=== PATIENT | female | born 1970 | race American Indian/Alaskan Native ===

== ENCOUNTER 2020-04-20 05:56 | Day surgery (SDC) | payer BC ==
[2020-04-15 09:48] LABS: Hematocrit 39.6 % (30.3-42.9); Hemoglobin 13.5 gm/dl (10.1-14.3); Mean Corpuscular HGB Conc 34 % (30-34); Mean Corpuscular Volume 86 fl (79-97); Platelet Count 216 K/mm3 (140-440); Red Blood Count 4.64 M/mm3 (3.65-5.03); Red Cell Distribution Width 13.7 % (13.2-15.2)
--- NOTE | 2020-04-15 17:00 | History and Physical Report ---
History of Present Illness Date of examination: 04/13/20 Date of admission: 04/20/2020 Chief complaint: post menopausal bleeding History of present illness: Visit Type: Pre-Op CC: no complaints. History of Present Illness: pt. presents for Pre-Op visit; no c/o. Mask, Patient denies fever, cough, shortness of breath and exposure to COVID-19. ................... ..................................................Shaquillefaviannathanael Robby April 13, 2020 10:05 AM Pt presents with pre op for hysteroscopy with D&C for post menopausal bleeding . Pt has not had menses in several years (since 2012) and in September 2019 started to have regular menes at least once per month or weekly with either bright red blood or darker older appering blood. Pt did have and embx that showed : NO DIAGNOSTIC FEATURES OF HYPERPLASIA. NO CARCINOMA SEEN. COMMENT: THE BIOPSIED NON-POLYPOID PROLIFERATIVE ENDOMETRIAL TISSUE IS WITH GLANDULAR AND STROMA BREAKDOWN AND IS LIMITED IN AMOUNT. A DIAGNOSIS OF DISORDERED PROLIFERATIVE ENDOMETRIUM CAN NOT BE EXCLUDED. I d/w pt previously that given she does have the paragard in place and she does not want it removed, this could be the cause of her b leeding but also that it being in place may complicat the procedure or limit what provider is able to do without it being dislodged. Pt previously expressed understanding and desired it to remain in place. Pt has had medical clearance for this procedure. All risk/benefits/alternatives were d/w pt and questions were addressed and answered. Including but not limited to bleeding, infection, uterine perforation, hysterectomy as a life saving measure. Pt expressed understanding. Consents were signed and placed on the chart. 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 Surgery (not C/S): negative Operations: positive: colon polypectomy (2006) Tonsillectomy Hospitalizations: negative Anesthesia Complications: negative Abnormal PAP: negative Uterine Anomaly: negative TASHIA Exposure: negative Infertility: negative Infection History HIV Risk Eval: no Hx of STD: None Active Medications (reviewed today): METFORMIN () MULTIVITAMIN () LOSARTAN-HCTZ () PARAGARD INTRAUTERINE COPPER INTRAUTERINE INTRAUTERINE DEVICE (IUD'S) Current Allergies (reviewed today): No known allergies Past Medical History: Reviewed history from 10/27/2016 and no changes required: colon polyps (2006) Hypertension-on lisinopril/HCTZ allergies Prediabetes diet controlled Hyperlipidemia diet controlled Past Surgical History: positive: colon polypectomy (2006) Tonsillectomy Family History Summary: Reviewed history Last on 10/21/2019 and no changes required:04/15/2020 Other Family Member - Has No Family History of Uterine Cancer - Entered On: 02/01/2018 Other Family Member - Has No Family History of Small Bowel Cancer - Entered On: 02/01/2018 Other Family Member - Has No Family History of Stomach Cancer - Entered On: 02/01/2018 Other Family Member - Has No Family History of Pancreatic Cancer - Entered On: 02/01/2018 Other Family Member - Has No Family History of Ovarvian Cancer - Entered On: 02/01/2018 Other Family Member - Has No Family History of Kidney/Urinary Tract Cancer - Entered On: 02/01/2018 Other Family Member - Has No Family History of Spontaneous DVT-PE - Entered On: 02/01/2018 Other Family Member - Has No Family History of Colon Cancer - Entered On: 02/01/2018 Other Family Member - Has No Family History of Brain Cancer - Entered On: 02/01/2018 Other Family Member - Has No Family History of Breast Cancer - Entered On: 02/01/2018 Other Family Member - Has No Family History of Biliary Tract Cancer - Entered On: 02/01/2018 General Comments - FH: No Family History of Breast Cancer No Family History of Colon Cancer No Family History of Ovarian Cancer Social History: Reviewed history from 10/27/2016 and no changes required: Patient is Smoking History: Patient has never smoked. Risk Factors: Smoked Tobacco Use: Never smoker Smokeless Tobacco Use: Never Passive smoke exposure: no Drug use: no HIV high-risk behavior: no Alcohol use: no Exercise: yes Times per week: 2 Type of Exercise: walking Review of Systems General Denies fever, chills, sweats, anorexia, fatigue, weakness, malaise, weight loss and sleep disorder. Denies nausea, vomiting, headache, swelling of legs, abdominal pain, vaginal discharge, vaginal bleeding and contractions. Complains of abnormal vaginal bleeding and pelvic pain. Denies vaginal discharge, incontinence, dysuria, hematuria, urinary frequency, amenorrhea, menorrhagia, genital sores, decreased libido, painful periods, painful sex, urinary urgency, hot flashes, vaginal dryness, vaginal itching and vaginal odor. CV Denies chest pains, palpitations, syncope, dyspnea on exertion, orthopnea, PND and peripheral edema. Resp Denies cough, dyspnea at rest, excessive sputum, hemoptysis, wheezing and pleurisy. GI Denies nausea, vomiting, diarrhea, constipation, change in bowel habits, abdominal pain, melena, hematochezia, jaundice, gas/bloating, indigestion/heartburn, dysphagia and odynophagia. Endo Denies cold intolerance, heat intolerance, polydipsia, polyphagia, polyuria and unusual weight change. Breast Denies left breast lump, right breast lump, nipple discharge, bloody discharge from nipple, breast pain, abnormal mammogram and breast enlargement. MS Denies back pain, joint pain, joint swelling, muscle cramps, muscle weakness, stiffness, arthritis, sciatica, restless legs, leg pain at night and leg pain with exertion. Derm Denies rash, itching, dryness and suspicious lesions. Neuro Denies paralysis, paresthesias, headache, seizures, tremors, vertigo, transient blindness, frequent falls, frequent headaches and difficulty walking. Psych Denies depression, anxiety, irritability and mood swings. Eyes Denies blurring, diplopia, irritation, discharge, vision loss, eye pain and photophobia. ENT Denies earache, ear discharge, tinnitus, decreased hearing, nasal congestion, nosebleeds, sore throat and hoarseness. Allergy Denies urticaria, allergic rash, hay fever and recurrent infections. Heme Denies abnormal bruising, bleeding and enlarged lymph nodes. [Labs In-House] Physical Exam Appearance: well developed, well nourished, no acute distress Other Exams Lungs: no rales, rhonchi, or wheezes Heart: S1, S2, no murmur, rub, or gallop Abdomen: soft, non-tender, no masses, bowel sounds normal Extremities: normal alignment, no joint enlargement, crepitus, masses or tenderness; normal tone and strength Genitourinary Exam Comments: deferred until EUA ] Past History Past Medical History: other (see hpi) Past Surgical History: other (see hpi) ELECTRICAL TECH/PROJECT MANAGER History: other (see hpi) Family/Genetic History: other (see hpi) Social history: other (see hpi) Medications and Allergies Allergies Allergy/AdvReac Type Severity Reaction Status Date / Time No Known Allergies Allergy Unverified 04/14/20 19:00 Review of Systems All systems: negative - Vital Signs Vital signs: Vital Signs Temp Pulse Resp BP Pulse Ox 98.2 F 76 20 162/93 97 04/15/20 09:30 04/15/20 09:30 04/15/20 09:30 04/15/20 09:30 04/15/20 09:30 Temp Pulse Resp BP Pulse Ox 98.2 F 76 20 162/93 97 04/15/20 09:30 04/15/20 09:30 04/15/20 09:30 04/15/20 09:30 04/15/20 09:30 - Physical Exam Breasts: Positive: deferred Cardiovascular: Normal S1, Normal S2 Lungs: Positive: Clear to auscultation, Normal air movement Abdomen: Positive: normal appearance, soft. Negative: distention, tenderness, guarding Genitourinary (Female): Positive: other (deferred until EUA) Deep Tendon Reflex Grade: Normal +2 Results Result Diagrams: 04/15/20 09:45 Abnormal lab results 04/15/20 Range/Units 09:45 WBC 4.3 L (4.5-11.0) K/mm3 All other labs normal. Assessment and Plan - Patient Problems (1) Postmenopausal bleeding Status: Acute Plan to address problem: -admit and prepare for hysterocopy with D&C and any other indicated procedures -consents signed and to be placed on the chart -all questions addressed and answered. (2) Cervical polyp Status: Acute
[2020-04-20] MEDS ORDERED: MIDAZOLAM 2 MG/2 ML INJ IV NR (06:00)
[2020-04-20] MEDS ORDERED: LACTATED RINGERS 1,000 ML IV SCH (06:00)
--- NOTE | 2020-04-20 06:44 | Anesthesia Consultation ---
Anesthesia Consult and Med Hx Date of service: 04/20/20 - Airway Anesthetic Teeth Evaluation: Good ROM Head & Neck: Adequate Mental/Hyoid Distance: Adequate Mallampati Class: Class II Intubation Access Assessment: Probably Good - Pulmonary Exam CTA: Yes - Cardiac Exam Cardiac Exam: RRR - Pre-Operative Health Status ASA Pre-Surgery Classification: ASA3 Proposed Anesthetic Plan: General - Pulmonary Hx Sleep Apnea: Yes (No CPAP) - Cardiovascular System Hx Hypertension: Yes - Central Nervous System Hx Psychiatric Problems: No - Hematic Hx Anemia: Yes (As a child) - Other Systems Hx Cancer: No Hx Obesity: Yes
--- NOTE | 2020-04-20 06:45 | Anesthesia Day of Surgery ---
Anesthesia Day of Surgery - Day of Surgery Patient Examined: Yes Patient H&P Reviewed: Yes Patient is NPO: Yes
[2020-04-20] MEDS ORDERED: ONDANSETRON 4 MG/2 ML INJ ONE (07:27)
[2020-04-20] MEDS ORDERED: propofoL 200 MG/20 ML VIAL IV ONE (07:27)
[2020-04-20] MEDS ORDERED: ROCURONIUM 50 MG/5 ML INJ IV ONE (07:27)
[2020-04-20] MEDS ORDERED: fentaNYL 100 MCG/2 ML INJ ONE (07:27)
[2020-04-20] MEDS ORDERED: SUCCINYLCHOLINE CHLORIDE 200 MG/10 ML INJ MDV ONE (07:27)
[2020-04-20] MEDS ORDERED: LIDOCAINE MPF (2%) 20 MG/1 ML VIAL 5 ML ONE (07:27)
[2020-04-20] MEDS ORDERED: SILVER NITRATE APPLICATOR 1 EA TP ONE ×2 (08:28→08:31)
[2020-04-20] MEDS ORDERED: KETOROLAC 30 MG/1 ML INJ ONE (08:37)
--- NOTE | 2020-04-20 08:47 | Short Stay Summary ---
Short Stay Documentation Date of service: 04/20/20 - History H&P: dictated Social history: other (see hpi) - Allergies and Medications Current Medications: Allergies No Known Allergies Allergy (Unverified 04/14/20 19:00) Active Medications Lactated Ringer's (Lactated Ringers) 1,000 mls @ 100 mls/hr IV DIRECT HAILEE Stop: 04/20/20 23:59 Midazolam HCl (Midazolam 2 Mg/2 Ml Inj) 2 mg IV PREOP NR Stop: 04/20/20 23:59 - Physical exam Breasts: deferred - Brief post op/procedure progress note Date of procedure: 04/20/20 Pre-op diagnosis: Postmenopausal bleeding; endometrial mass; cervical mass Post-op diagnosis: same Procedure: Removal of cervical polyp Diagnostic hysteroscopy Hysteroscopic polypectomy Dilatation and curettage Anesthesia: GETA Findings: See operative report Surgeon: JUDY ROSSI Estimated blood loss: minimal Pathology: list (Cervical mass, Endometrial mass, curettage specimen) Specimen disposition: to lab Condition: stable - Hospital course Hospital course: Patient was admitted for above-stated procedure. Patient underwent above-stated procedure that was not complicated. Patient will be discharged once discharge criteria has been met in the PACU. - Disposition Condition at discharge: Good Disposition: DC-01 TO HOME OR SELFCARE - Discharge Diagnoses (1) Postmenopausal bleeding Status: Acute (2) Cervical polyp Status: Acute Short Stay Discharge Plan Activity: no restrictions Diet: low salt Follow up with: UNRULY LANGFORD MD [Primary Care Provider] - 7 Days Prescriptions: Ibuprofen [Motrin 800 MG tab] 800 mg PO Q8HR PRN #30 tablet PRN Reason: Pain, Moderate (4-6)
--- NOTE | 2020-04-20 08:47 | Operative Report ---
Operative Report Operative Report: Date of procedure: 04/20/2020 Pre-operative diagnosis: Postmenopausal bleeding Morbid obesity BMI 52 Hypertension Endometrial mass Post-operative diagnosis: Same Procedure name(s): Exam and anesthesia Dilatation and curettage Hysteroscopic polypectomy Surgeon: Dr. Narayan Video And Sound Recorder: Certified surgical scrub teacher's assistant Anesthesia: Gen. endotracheal anesthesia EBL: Minimal Urine output: 250 mL out at the beginning of the procedure via straight catheterization Fluids: 250 mL/fluid deficit was 300 mL Findings: Mass noted at the cervical os appeared to be external polyp 2 endometrial masses noted on hysteroscopy appears to be polypoid in nature Copper IUD noted to be at uterine fundus both prior to the procedure and at the end of the procedure. There was no evidence of fundal perforation at the end of the procedure Indications: Patient presented with postmenopausal bleeding. Patient was noted to have endometrial mass as well as cervical polyp on exam prior to procedure. Patient did undergo endometrial biopsy in office that was normal. Patient continued to have bleeding. Patient was brought to the operating room for above-stated procedures. Procedure: Patient was taken to the operating room where she was placed under general anesthesia. She was placed in dorsal lithotomy position with legs in Agustin stirrups. She was then prepped and draped in sterile fashion. Straight catheterization was done at this time. The anterior lip of the cervix was grasped with a tenaculum and the uterus was sounded to approximately 8 cm. As at this point that the cervix was dilated to allow the passage of a hysteroscope. Patient was noted to have the above-stated findings. Under direct visualization the polyp resected was placed through the hysteroscope and endometrial masses were removed at this time x2. It was at this time that hysteroscope was removed and patient underwent curettage after dilatation. With minimal tissue removed at this time. Care was taken to not dislodge copper IUD that was in place. Patient was noted to have a small cervical puncture from the tenaculum that was used on the anterior lip of the cervix. Silver nitrate was applied to this area. Hemostasis was noted to be excellent. Patient was taken to the recovery room awake and in stable condition. All laps and needle counts were correct. Patient tolerated the procedure well. Surgeon: Dr. Narayan Video And Sound Recorder: Certified surgical scrub teacher's assistant Anesthesia: [] EBL: [] Urine output: [] Fluids: [] Findings: [] Indications: [] Procedure: Patient was taken to the operating room where she was placed under [mask anesthesia]. She was then prepped and draped in sterile fashion. She was placed in dorsal lithotomy position with legs in Agustin stirrups. Urine output was obtained via straight catheterization. The anterior lip of the cervix was grasped with a tenaculum and the uterus was sounded to approximately [10 ]cm. As at this point that the cervix was dilated to allow the passage of a [9 ]mm suction curette. Suction dilatation and curettage occurred until a gritty texture was obtained on all surfaces of the uterus. Products of conception were removed from the uterus. Patient was given [Pitocin] at the end of the procedure. Hemostasis was noted to be excellent. Patient was taken to the recovery room awake and in stable condition. Patient was given Ancef prior to the onset of the procedure. All laps and needle counts were correct. Patient tolerated the procedure well.
[2020-04-20] MEDS ORDERED: HYDROcodone/ACETAMINOPHEN 5-325 MG TAB PO PRN (09:30)
[2020-04-20] MEDS ORDERED: fentaNYL 100 MCG/2 ML INJ IV PRN (09:30)
[2020-04-20 09:54] VITALS: BP 110/66
--- NOTE | 2020-04-20 11:06 | Post Anesthesia Evaluation ---
- Post Anesthesia Evaluation Patient Participated: Yes Airway Patent: Yes Stable Respiratory Function: Yes Nausea/Vomiting: No Temp > 96.8F: Yes Pain Manageable: Yes Adequeate Hydration: Yes Anesthesia Complications: No
== END 2020-04-20 05:57 | disposition home or self-care (01) ==
LOC: OR 05:56
PROVIDERS: ATTEND Obstetrics & Gynecology
DX: N95.0 Postmenopausal bleeding (principal); Z20.828 Contact with and (suspected) exposure to other viral communicable diseases; N84.1 Polyp of cervix uteri; I10 Essential (primary) hypertension; G47.30 Sleep apnea, unspecified; E66.9 Obesity, unspecified; D64.9 Anemia, unspecified; Z98.890 Other specified postprocedural states; Z79.899 Other long term (current) drug therapy; Z90.49 Acquired absence of other specified parts of digestive tract
CPT/HCPCS: 36415; 58558; 84132; 85027; 88305; J0330; J1885; J2405; J2704; J3010; J7120; U0003